=== PATIENT | male | born 1955 | race Hispanic/Latino ===

== ENCOUNTER 2016-12-16 00:53 | Observation (INO) | payer BC, OTHER ==
[2016-12-16 01:17] LABS: #Basophils 0.1 thou/uL (0.0-0.2); #Eosinphils 0.2 thou/uL (0.0-0.7); #Lymphocytes 2.1 thou/uL (1.20-3.40); #Monocytes 0.5 thou/uL (0.11-0.59); #Neutrophils 4.1 thou/uL (1.40-6.50); %Basophils 1.5 % (0.0-1.0); %Eosinophils 2.8 % (0.0-10.0); %Lymphocytes 29.7 % (21.0-51.0); Hematocrit 38.6 % (42.0-52.0); Mean Platelet Volume 9.2 fL (7.4-10.4); Red Blood Cell (RBC) Count 4.23 mill/uL (4.70-6.10); White Blood Cell (WBC) Count 6.9 thou/uL (4.8-10.8)
[2016-12-16 01:33] LABS: ALT (SGPT) 32 U/L (8-55); AST (SGOT) 30 U/L (5-34); Alkaline Phosphatase 78 U/L (40-150); Anion Gap 16 mmol/L (10-20); BUN (Urea Nitrogen) 10 mg/dL (8.4-25.7); Bilirubin, Total 0.7 mg/dL (0.2-1.2); Calc. Creatinine Clearance 0 mL/min (70-130); Calcium 8.4 mg/dL (7.8-10.44); Carbon Dioxide 20 mmol/L (22-29); Chloride 104 mmol/L (98-107); Estimated GFR-MDRD Greater than 90; Globulin 2.9 g/dL (2.4-3.5); Protein, Total 6.8 g/dL (6.0-8.3)
[2016-12-16 01:35] LABS: Troponin I Less than 0.010 ng/mL (< 0.028)
[2016-12-16 01:36] LABS: Prothrombin Time 13.8 SEC (12.0-14.7)
[2016-12-16 05:36] LABS: Troponin I Less than 0.010 ng/mL (< 0.028)
[2016-12-16 05:47] VITALS: BMI 33.8
[2016-12-16] MEDS ORDERED: Diazepam 5 MG TAB PO PRN (06:03)
[2016-12-16] MEDS ORDERED: Meclizine HCl 25 MG TAB PO PRN (06:03)
[2016-12-16] MEDS ORDERED: Dextrose 50% Abboject 50 ML SYRINGE SLOW IVP PRN (06:04)
[2016-12-16] MEDS ORDERED: Dextrose 5% in Water 1,000 ML IV PRN (06:04)
[2016-12-16] MEDS ORDERED: HumaLOG 300 UNITS/3 ML VIAL SC PRN ×2 (06:04)
[2016-12-16 07:07] LABS: Troponin I Less than 0.010 ng/mL (< 0.028)
[2016-12-16] MEDS ORDERED: Potassium Chloride 20 MEQ TAB PO SCH ×2 (07:30→13:00)
--- NOTE | 2016-12-16 08:10 | CT ---
PRELIMINARY REPORT/[facility]/EMERGENCY AFTER HOURS PROCEDURE: EXAM: CT Head Without Intravenous Contrast EXAM DATE/TIME: 12/16/2016 1:27 AM CLINICAL HISTORY: 61 years old, male; Injury or trauma; Fall; Patient HX: Pt blacked out and hit head on coffee table. Came to right after. Had chest pain earlier today. Abrasion to r forehead, no neuro deficits. No pa in now. TECHNIQUE: Axial computed tomography images of the head/brain without intravenous contrast. COMPARISON: No relevant prior studies available. FINDINGS: Brain: No evidence of acute intracranial hemorrhage, extraxial fluid or midline shift. Mild prominen ce of the cerebral sulci and ventricles. Cerebellum atrophic; otherwise, posterior fossa structures within normal limits. No significant white matter disease. Ventricles: See above. Bones/joints: Unremarkable. No acute fracture. Soft tissues: Mild right frontoparietal scalp swelling-hematoma. Sinuses: Unremarkable as visualized. No acute sinusitis. Mastoid air cells: Unremarkable as visualized. No mastoid effusion. IMPRESSION: 1. No evidence of acute intracranial hemorrhage, extraxial fluid or midline shift. 2. Mild right frontoparietal scalp swelling-hematoma. 3. Mild cerebral atrophy. Thank you for allowing us to participate in the care of your patient. Dictated and Authenticated by: Lizzette Mabry MD 12/16/2016 1:51 AM Central Time ([place] \T\ [place]) FINAL REPORT NONCONTRAST HEAD CT: Date: 12/16/16 HISTORY: Syncope. Blacked out and hit head on coffee table. Right forehead abrasion. COMPARISON: None. FINDINGS/IMPRESSION: This report is in agreement with the preliminary report by Beatriz. No intracranial post-traumatic sequ elae. Minimal right frontal scalp hematoma. Underlying calvarium is intact. POS: [facility]
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
--- NOTE | 2016-12-16 08:37 | RAD ---
CHEST 1 VIEW: Date: 12/16/16 HISTORY: Syncope. COMPARISON: None. FINDINGS: Normal cardiac silhouette. Pulmonary vessels and hilum are normal. Costophrenic angles are clear. No masses. No consolidation. No pneumothorax or osseous abnormalities. IMPRESSION: No acute cardiopulmonary process. POS: [facility]
[2016-12-16 08:45] LABS: Amphetamine Not Detected (NotDetected); Methadone Not Detected (NotDetected); Methamphetamine Not Detected (NotDetected)
[2016-12-16] MEDS ORDERED: Loratadine 10 MG TAB PO PRN (08:50)
[2016-12-16] MEDS ORDERED: Diabetic Tussin 200 MG/10 ML UDCUP PO PRN (08:50)
[2016-12-16] MEDS ORDERED: HYDROcodone/Acetaminophen 5/325 mg Tablet PO PRN (08:50)
[2016-12-16] MEDS ORDERED: Mag-Al 1200 mg/1200 mg/30 ML UDCUP PO PRN (08:50)
[2016-12-16] MEDS ORDERED: Nitroglycerin 0.4 MG TAB (25 Tab Bottle) SL PRN (08:50)
[2016-12-16] MEDS ORDERED: Ondansetron HCl/PF 4 MG/2 ML Vial IVP PRN (08:50)
[2016-12-16] MEDS ORDERED: traMADol HCl 50 MG TAB PO PRN (08:50)
[2016-12-16] MEDS ORDERED: Famotidine 20 MG TAB PO PRN (08:50)
[2016-12-16] MEDS ORDERED: cloNIDine 0.1 MG TAB PO PRN (08:50)
[2016-12-16] MEDS ORDERED: hydrALAZINE 20 MG/ML VIAL SLOW IVP PRN (08:50)
[2016-12-16] MEDS ORDERED: Calcium Carbonate 500 MG ChewTAB PO PRN (08:50)
[2016-12-16] MEDS ORDERED: Lorazepam 1 MG TAB PO PRN (08:50)
[2016-12-16] MEDS ORDERED: Bisacodyl 5 MG TAB PO PRN (08:50)
[2016-12-16] MEDS ORDERED: Benzonatate 100 MG CAP PO PRN (08:50)
[2016-12-16] MEDS ORDERED: Acetaminophen 325 MG TAB PO PRN (08:50)
[2016-12-16] MEDS ORDERED: Senokot 8.6 MG TAB PO PRN (08:50)
--- NOTE | 2016-12-16 08:52 | ULT ---
CAROTID ULTRASOUND WITH DOPPLER: Date: 12/16/16 HISTORY: Syncope. COMPARISON: None. TECHNIQUE: Hernandez scale, color flow, Doppler imaging, and spectral waveform analysis performed in the carotid and vertebral arteries. FINDINGS: RIGHT CAROTID: Intimal thickness of the common carotid artery is 0.09 cm. Peak systolic velocity in the common calvillo tid artery is 96.2 cm/second. Peak systolic velocity in the internal carotid artery is 105.7 cm/seco nd. No significant atherosclerotic disease. Systolic ICA/CCA ratio is 1.1. LEFT CAROTID: Intimal thickness of the common carotid artery is 0.11 cm. Peak systolic velocity in the common calvillo tid artery is 110.1 cm/second. Peak systolic velocity in the internal carotid artery is 97.5 cm/seco nd. No significant atherosclerotic disease. Systolic ICA/CCA ratio is 0.9. Antegrade flow in bilateral vertebral arteries. IMPRESSION: No sonographic evidence of hemodynamically significant stenosis. POS: [facility]
[2016-12-16] MEDS ORDERED: Aspirin 325 mg Enteric Coated Tablet PO SCH (09:00)
[2016-12-16] MEDS: Bacitracin Zinc 1 Packet TOP SCH ×2 (12:43→20:30)
[2016-12-16] MEDS: Pioglitazone HCl 15 MG TAB PO SCH (12:43)
[2016-12-16] MEDS: Aspirin 81 mg Enteric Coated Tablet PO SCH (12:44)
[2016-12-16 13:24] LABS: Troponin I Less than 0.010 ng/mL (< 0.028)
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
[2016-12-16] MEDS ORDERED: Atorvastatin Calcium 20 MG TAB PO SCH (21:00)
[2016-12-17] MEDS: Pioglitazone HCl 15 MG TAB PO SCH ×2 (08:07→13:49)
[2016-12-17] MEDS: Aspirin 81 mg Enteric Coated Tablet PO SCH (08:10)
[2016-12-17] MEDS: Bacitracin Zinc 1 Packet TOP SCH ×2 (08:16→13:49)
--- NOTE | 2016-12-17 10:55 | PDOC.PN ---
- Subjective Encounter Start Date: 12/17/16 Encounter Start Time: 08:45 Subjective: feels better - Objective MAR Reviewed: Yes Vital Signs & Weight: Vital Signs (12 hours) Temp Pulse Resp BP BP BP BP 12/17/16 08:16 98.1 F 61 18 12/17/16 08:10 133/67 12/17/16 08:00 98.1 F 61 18 123/63 139/71 12/17/16 04:20 97.7 F 62 20 133/67 133/67 12/16/16 23:10 98.8 F 60 16 111/66 111/66 BP Pulse Ox 12/17/16 08:16 12/17/16 08:10 12/17/16 08:00 129/66 95 12/17/16 04:20 95 12/16/16 23:10 96 Weight Weight 202 lb 12.8 oz I&O: 12/16/16 12/17/16 12/18/16 06:59 06:59 06:59 Intake Total 0 855 Output Total 200 700 Balance -200 155 Result Diagrams: 12/16/16 01:05 12/16/16 01:05 Additional Labs: Accuchecks 12/17/16 12/16/16 12/16/16 04:22 17:13 11:03 POC Glucose 85 96 103 Phys Exam - Physical Examination HEENT: PERRLA, moist MMs Neck: no JVD, supple Respiratory: no wheezing, no rales Cardiovascular: RRR, no significant murmur Gastrointestinal: soft, non-tender, positive bowel sounds Musculoskeletal: no edema, pulses present Neurological: non-focal, moves all 4 limbs Psychiatric: A&O x 3 Dx/Plan (1) Syncope Code(s): R55 - SYNCOPE AND COLLAPSE Status: Acute Qualifiers: Syncope type: unspecified Qualified Code(s): R55 - Syncope and collapse (2) DM type 2 (diabetes mellitus, type 2) Status: Chronic Qualifiers: Diabetes mellitus complication status: with unspecified complications Diabetes mellitus custodial insulin use: without continuous churn buttermaker use Qualified Code( s): E11.8 - Type 2 diabetes mellitus with unspecified complications (3) HTN (hypertension) Code(s): I10 - ESSENTIAL (PRIMARY) HYPERTENSION Status: Chronic Qualifiers: Hypertension type: essential hypertension Qualified Code(s): I10 - Essential (primary) hypertension (4) Dyslipidemia Code(s): E78.5 - HYPERLIPIDEMIA, UNSPECIFIED Status: Chronic (5) Alcohol abuse Code(s): F10.10 - ALCOHOL ABUSE, UNCOMPLICATED Status: Chronic - Plan await stress test -: will need outpt holter/event monitor -: dc plan per cardiology advice -: echo shows normal ef and valvular structures * . Review of Systems - Medications/Allergies Allergies/Adverse Reactions: Allergies Allergy/AdvReac Type Severity Reaction Status Date / Time No Known Allergies Allergy Verified 12/16/16 05:35 Medications: Current Medications Acetaminophen (Tylenol) 650 mg PO Q4H PRN PRN Reason: Headache/Fever or Mild Pain Last Admin: 12/16/16 09:27 Dose: 650 mg Hydrocodone Bitart/Acetaminophen ([place] 5/325) 1 tab PO Q4H PRN PRN Reason: Moderate Pain (4-6) Al Hydroxide/Mg Hydroxide (Maalox) 15 ml PO Q4H PRN PRN Reason: Heartburn or Indigestion Aspirin (Ecotrin) 81 mg PO DAILY [facility] Last Admin: 12/17/16 08:10 Dose: 81 mg Atorvastatin Calcium (Lipitor) 20 mg PO HS [facility] Last Admin: 12/16/16 20:30 Dose: 20 mg Bacitracin Zinc (Bacitracin) 1 pk TOP TID [facility] Last Admin: 12/17/16 08:16 Dose: 1 pk Benazepril HCl (Lotensin) 40 mg PO DAILY [facility] Last Admin: 12/17/16 08:10 Dose: 40 mg Benzonatate (Tessalon) 100 mg PO Q4H PRN PRN Reason: Cough Bisacodyl (Dulcolax) 10 mg PO DAILYPRN PRN PRN Reason: Constipation Calcium Carbonate (Tums) 1,000 mg PO Q4H PRN PRN Reason: Heartburn or Indigestion Clonidine (Catapres) 0.1 mg PO Q4H PRN PRN Reason: Systolic BP > 160 Dextrose/Water (Dextrose 50%) 25 gm SLOW IVP PRN PRN PRN Reason: Hypoglycemia Diazepam (Valium) 5 mg PO DAILY PRN PRN Reason: Anxiety Famotidine (Pepcid) 20 mg PO BIDPRN PRN PRN Reason: Heartburn or Indigestion Glucagon (Glucagon) 1 mg IM PRN PRN PRN Reason: Hypoglycemia Guaifenesin (Robitussin Sf) 200 mg PO Q4H PRN PRN Reason: Cough Hydralazine HCl (Apresoline) 10 mg SLOW IVP Q4H PRN PRN Reason: Systolic BP > 170 Dextrose/Water (D5w) 1,000 mls @ 0 mls/hr IV .Q0M PRN; As Directed PRN Reason: Hypoglycemia Insulin Human Lispro (Humalog) 0 units SC .MODERATE SLIDING SC PRN PRN Reason: Moderate Correctional Scale Insulin Human Lispro (Humalog) 0 units SC .BEDTIME SLIDING SC PRN PRN Reason: Bedtime Correctional Scale Loratadine (Claritin) 10 mg PO DAILYPRN PRN PRN Reason: Sinus Symptoms Lorazepam (Ativan) 1 mg PO Q4H PRN PRN Reason: Anxiety/Agitation Meclizine HCl (Antivert) 25 mg PO DAILY PRN PRN Reason: Dizziness Nitroglycerin (Nitrostat) 0.4 mg SL Q5MIN PRN PRN Reason: Chest Pain Ondansetron HCl (Zofran) 4 mg IVP Q6H PRN PRN Reason: Nausea/Vomiting Pantoprazole Sodium (Protonix) 40 mg PO DAILY [facility] Last Admin: 12/17/16 08:10 Dose: 40 mg Pioglitazone HCl (Actos) 15 mg PO DAILY [facility] Last Admin: 12/17/16 08:07 Dose: Not Given Senna (Senokot) 2 tab PO HSPRN PRN PRN Reason: Constipation Tramadol HCl (Ultram) 50 mg PO Q4H PRN PRN Reason: Moderate Pain (4-6)
[2016-12-17 12:03] VITALS: BP 118/59; TEMP 97.8
--- NOTE | 2016-12-17 12:08 | NM ---
MYOCARDIAL PERFUSION SCAN: Date: 12/17/16 HISTORY: Syncope. TECHNIQUE: The patient was given 10 mCi of technetium sestamibi for rest imaging and 29 mCi for stress imaging. Patient was stressed with exercise according to [facility] protocol. Patient obtained 98% of maximal age- predicted heart rate. Left ventricle was imaged with SPECT imaging. CT attenuation images also obtained. FINDINGS: There is normal activity throughout the left ventricle on stress and rest images. No evidence of rev ersible ischemia. Wall motion is normal. Ejection fraction is recorded at over 70%. IMPRESSION: Negative sestamibi stress test. POS: [facility]
--- NOTE | 2016-12-18 00:05 | DIS ---
DATE OF ADMISSION: 12/16/2016 DATE OF DISCHARGE: 12/17/2016 DISCHARGE DISPOSITION: To home. PRIMARY DISCHARGE DIAGNOSIS: Syncope. SECONDARY DISCHARGE DIAGNOSES: Diabetes mellitus type 2, hypertension, dyslipidemia, alcohol abuse. PROCEDURES DONE DURING HOSPITALIZATION: CT cervical spine done showed no acute fractures or dislocation. CT brain, no acute intracranial abnormalities. Carotid Doppler done showed no hemodynamically significant stenosis. Echo with 2D Doppler showed EF of 55-60%, no significant valvular abnormalities were seen on the echo. Nuclear stress test done showed no reversible ischemia, ejection fraction was over 70%. Wall motion was normal. H\T\H 14 and 38, platelet count 167, total cholesterol 134, triglycerides 102, LDL 75, HDL 39. Troponin x3 was negative. DISCHARGE MEDICATIONS: Aspirin 81 mg p.o. daily, benazepril 40 mg p.o. daily, meclizine p.r.n., Prilosec 20 mg p.o. daily, Actos 15 mg p.o. daily, simvastatin 40 mg p.o. at bedtime. ALLERGIES: No known drug allergies. INPATIENT CONSULTS: Dr. Gee for Cardiology. DISCHARGE PLAN: Patient is to follow up with Dr. Gee as advised and primary care physician in [address] Gee's office will arrange for a Holter monitor in the morning. BRIEF COURSE DURING HOSPITALIZATION: Patient initially was brought to emergency room after he passed out. He hit his head with abrasions on the forehead and maxillary area. He was placed under observation on telemetry. The patient has had complete workup done for his syncope. None of the workup so far has been positive. CT brain and CT cervical spine have been negative for any fractures, stroke or dislocations. Echo showed normal wall motion with no acute valvular abnormalities. Nuclear stress test showed no reversible ischemia. Telemetry has not revealed any arrhythmias. Mr. Martinez was counseled with regarding alcohol abuse. He was drinking up to 6-7 beers on a daily basis. He is hemodynamically and neurologically stable. He will be shortly discharged home. Dr. Gee's office will arrange for a Holter monitor upon discharge in the morning. He has otherwise been cleared for discharge by Dr. Gee today. Please see a face to face documentation on [facility] for the day of discharge. [facility]
== END 2016-12-17 14:49 | disposition home or self-care (01) ==
LOC: SCSER 00:53 → 2SW 01:44
PROVIDERS: ADMIT Internal Medicine; ATTEND Internal Medicine
DX: R55 Syncope and collapse (principal); E11.9 Type 2 diabetes mellitus without complications; I10 Essential (primary) hypertension; E78.5 Hyperlipidemia, unspecified; H81.09 Meniere's disease, unspecified ear; F10.10 Alcohol abuse, uncomplicated; Z82.49 Family history of ischemic heart disease and other diseases of the circulatory system
CPT/HCPCS: 36415; 36416; 70450; 71010; 72125; 78452; 80053; 80061; 80306; 80307; 82553; 84484; 85025; 85610; 85730; 93005; 93017; 93306; 93880; A9500; G0378